=== PATIENT | male | born 1965 | race Hispanic/Latino ===

== ENCOUNTER 2019-11-25 11:52 | Emergency (ER) | payer BC, OTHER ==
[2019-11-25] MEDS ORDERED: SODIUM CHLORIDE 0.9% 1000ML 1,000 ML IV ONE (11:53)
[2019-11-25 12:19] LABS: APPEARANCE,URINE Turbid (CLEAR); BILIRUBIN,URINE Negative (NEGATIVE); COLOR,URINE Yellow (YELLOW); GLUCOSE, URINE (UA) Negative (NEGATIVE); KETONES,URINE Negative (NEGATIVE); LEUKOCYTE ESTERASE ,URINE Trace (NEGATIVE); NITRATE,URINE Negative (NEGATIVE); OCCULT BLOOD,URINE Negative (NEGATIVE); PH,URINE 8.5 (5.0-8.0); PROTEIN,URINE Negative (NEGATIVE); UROBILINOGEN,URINE 0.2 mg/dL (0.2-1.0)
[2019-11-25 12:27] LABS: BASOPHILS % (AUTO) 0.4 % (0.0-5.0); EOSINOPHILS % (AUTO) 2.7 % (0.0-8.0); HEMATOCRIT 45.3 % (42-54); LYMPHOCYTES % (AUTO) 19.7 % (21.0-51.0); MEAN CORPUSCULAR HEMOGLOBIN 32.3 pg (27.0-33.0); MEAN CORPUSCULAR HGB CONC 37.5 g/dL (32.0-36.0); MEAN CORPUSCULAR VOLUME 86.1 fL (79-99); MONOCYTES % (AUTO) 8.6 % (3.0-13.0); NEUTROPHILS % (AUTO) 68.1 % (40.0-77.0); PLATELET COUNT (AUTO) 214 K/uL (130-400); RED BLOOD CELL COUNT(AUTO) 5.26 MIL/uL (4.50-6.20); RED CELL DISTRIBUTION WIDTH 12.2 % (11.0-15.5); WHITE BLOOD COUNT (AUTO) 10.3 K/uL (4.8-10.8)
[2019-11-25 12:33] LABS: AMORPHOUS SEDIMENT,UR Many /LPF (None Seen); BACTERIA,URINE Rare /HPF (None Seen); RBC,URINE 0-1 /HPF (0-1); SQUAMOUS EPITHELIAL CELL,UR Rare /HPF (0-2); WBC,URINE 0-1 /HPF (0-1)
[2019-11-25 12:37] LABS: POTASSIUM 3.9 mmol/L (3.5-5.1)
[2019-11-25] MEDS ORDERED: TAMSULOSIN HCL 0.4 MG CAP.ER.24H ONE ×2 (13:45→13:46)
[2019-11-25] MEDS ORDERED: KETOROLAC TROMETHAMINE 30MG/ML ONE ×2 (13:45→13:46)
== END 2019-11-25 15:00 | disposition home or self-care (01) ==
LOC: EDH 11:52
DX: N20.0 Calculus of kidney (principal); I10 Essential (primary) hypertension; Z88.8 Allergy status to other drugs, medicaments and biological substances
CPT/HCPCS: 36415; 76770; 80048; 81001; 85025; 96361; 96374; 99284; J1885; J7030

== ENCOUNTER 2019-11-28 03:12 | Inpatient (IN) | payer SELFPAY ==
[~2019-11-28] VITALS: Ht 182.9 cm; Wt 135.6 kg
[2019-11-28] MEDS ORDERED: ONDANSETRON HCL 4 MG/2 ML VIAL ONE (03:30)
[2019-11-28] MEDS ORDERED: MORPHINE SULFATE 4 MG/1ML SYG ONE ×2 (03:30→06:06)
[2019-11-28 03:38] LABS: BASOPHILS % (AUTO) 0.8 % (0.0-5.0); EOSINOPHILS % (AUTO) 2.9 % (0.0-8.0); HEMATOCRIT 48.7 % (42-54); LYMPHOCYTES % (AUTO) 15.7 % (21.0-51.0); MEAN CORPUSCULAR HEMOGLOBIN 32.3 pg (27.0-33.0); MEAN CORPUSCULAR HGB CONC 37.2 g/dL (32.0-36.0); MONOCYTES % (AUTO) 5.8 % (3.0-13.0); NEUTROPHILS % (AUTO) 72.7 % (40.0-77.0); PLATELET COUNT (AUTO) 198 K/uL (130-400); RED CELL DISTRIBUTION WIDTH 12.3 % (11.0-15.5); WHITE BLOOD COUNT (AUTO) 12.1 K/uL (4.8-10.8)
[2019-11-28 03:49] LABS: CREATININE 1.1 mg/dL (0.5-1.5); POTASSIUM 3.7 mmol/L (3.5-5.1)
[2019-11-28 03:54] LABS: BILIRUBIN,TOTAL 1.1 mg/dL (0.2-1.0); TOTAL PROTEIN, SERUM 7.4 g/dL (6.0-8.3)
[2019-11-28] MEDS ORDERED: MORPHINE SULFATE 2 MG/ML 1ML SYG ONE (04:03)
[2019-11-28] MEDS ORDERED: ZOSYN 3.375GM+NS 50ML 50 ML IV ONE (05:09)
[2019-11-28] MEDS: SODIUM CHLORIDE 0.9% 1000ML 1,000 ML IV SCH ×2 (05:55→16:28)
[2019-11-28] MEDS ORDERED: METRONIDAZOLE 500MG/100ML BAG 100 ML ONE (06:00)
[2019-11-28] MEDS: CEFTRIAXONE SODIUM 1 GM IV SCH (06:00)
[2019-11-28] MEDS ORDERED: NITROGLYCERIN 0.4 MG SL TAB SL PRN (06:00)
[2019-11-28] MEDS: METRONIDAZOLE 500MG/100ML BAG 100 ML IV SCH ×3 (06:00→19:57)
[2019-11-28] MEDS ORDERED: CEFTRIAXONE SODIUM 1 GM ONE (06:06)
[2019-11-28 06:27] LABS: INR 1.04 (0.85-1.15); PROTHROMBIN TIME 11.2 SEC (9.6-11.6)
[2019-11-28] MEDS ORDERED: HYDRALAZINE HCL 20 MG/ML VIAL IV PRN (08:30)
[2019-11-28] MEDS ORDERED: FAMOTIDINE/PF 20 MG/2 ML VIAL IV ONE (08:32)
[2019-11-28] MEDS: FAMOTIDINE/PF 20 MG/2 ML VIAL IV SCH ×2 (09:00→19:57)
[2019-11-28] MEDS: ZOSYN 3.375GM+NS 50ML 50 ML IV SCH ×2 (13:00→19:57)
[2019-11-28] MEDS: MORPHINE SULFATE 4 MG/1ML SYG IV PRN (15:16)
[2019-11-28] MEDS ORDERED: TAMS-1 PO (15:37)
[2019-11-28] MEDS ORDERED: LISI2.5T91 PO (15:37)
[2019-11-28 16:19] VITALS: BP 128/94
--- NOTE | 2019-11-28 16:37 | NUR ---
DC PLAN VISITED WITH PATIENT. PATIENT WAS WITH NURSE DOING ADMISSION ASSESSMENT. CM WILL CONTINUE TO FOLLOW. Addendum: 11/28/19 at 1639 by JACOB WILSON RN CM Amended: Links added.
[2019-11-28] MEDS: MORPHINE SULFATE 2 MG/ML 1ML SYG IVP PRN (19:58)
[2019-11-28 20:11] VITALS: BP 150/98
[2019-11-29 00:21] VITALS: BP 129/87
[2019-11-29 00:25] LABS: APPEARANCE,URINE Cloudy (CLEAR); BILIRUBIN,URINE Negative (NEGATIVE); COLOR,URINE Dark Yellow (YELLOW); GLUCOSE, URINE (UA) Negative (NEGATIVE); KETONES,URINE 15 mg/dL (NEGATIVE); LEUKOCYTE ESTERASE ,URINE Negative (NEGATIVE); NITRATE,URINE Negative (NEGATIVE); OCCULT BLOOD,URINE Small (NEGATIVE); PROTEIN,URINE Trace mg/dL (NEGATIVE)
[2019-11-29 00:40] LABS: BACTERIA,URINE None Seen /HPF (None Seen); MUCUS,URINE Few LPF (None Seen); RBC,URINE 0-1 /HPF (0-1); SQUAMOUS EPITHELIAL CELL,UR Rare /HPF (0-2); WBC,URINE None Seen /HPF (0-1)
[2019-11-29] MEDS: SODIUM CHLORIDE 0.9% 1000ML 1,000 ML IV SCH ×3 (01:02→19:36)
[2019-11-29 03:40] LABS: BASOPHILS % (AUTO) 0.3 % (0.0-5.0); EOSINOPHILS % (AUTO) 2.1 % (0.0-8.0); LYMPHOCYTES % (AUTO) 7.5 % (21.0-51.0); MEAN CORPUSCULAR HEMOGLOBIN 32.2 pg (27.0-33.0); MEAN CORPUSCULAR HGB CONC 36.3 g/dL (32.0-36.0); MEAN CORPUSCULAR VOLUME 88.9 fL (79-99); MONOCYTES % (AUTO) 5.8 % (3.0-13.0); PLATELET COUNT (AUTO) 206 K/uL (130-400); RED CELL DISTRIBUTION WIDTH 12.8 % (11.0-15.5); WHITE BLOOD COUNT (AUTO) 15.9 K/uL (4.8-10.8)
[2019-11-29 03:48] LABS: CREATININE 1.2 mg/dL (0.5-1.5); POTASSIUM 4.1 mmol/L (3.5-5.1)
[2019-11-29] MEDS: CEFTRIAXONE SODIUM 1 GM IV SCH (04:56)
[2019-11-29] MEDS: METRONIDAZOLE 500MG/100ML BAG 100 ML IV SCH ×3 (04:56→20:03)
[2019-11-29] MEDS: ZOSYN 3.375GM+NS 50ML 50 ML IV SCH ×3 (05:36→20:03)
[2019-11-29 05:50] VITALS: BP 111/74
[2019-11-29] MEDS: ONDANSETRON HCL 4 MG/2 ML VIAL IV PRN ×2 (07:12→16:23)
[2019-11-29 08:00] VITALS: BP 129/98
[2019-11-29] MEDS: FAMOTIDINE/PF 20 MG/2 ML VIAL IV SCH ×2 (09:08→20:03)
[2019-11-29] MEDS: FLUCONAZOLE 200 MG/NS 100 ML 100 ML IV SCH (10:44)
[2019-11-29 12:00] VITALS: BP 141/101
--- NOTE | 2019-11-29 13:05 | NUR ---
DC PLAN VISITED WITH PATIENT. PATIENT LIVES WITH SPOUSE. INDEPENDENT ABLE TO PERFORM ADL'S. PATIENT HAS NO SERVICES OR DME'S. FEELS SAFE TO RETURN. Addendum: 11/29/19 at 1306 by JACOB WILSON RN CM Amended: Links added.
[2019-11-29 16:30] VITALS: BP 123/82
[2019-11-29 19:51] VITALS: BP 133/92
[2019-11-29] MEDS: MORPHINE SULFATE 2 MG/ML 1ML SYG IVP PRN (21:47)
[2019-11-30] VITALS (7 sets, daily range): BP systolic 121–148; BP diastolic 77–96
[2019-11-30] MEDS: ONDANSETRON HCL 4 MG/2 ML VIAL IV PRN (01:25)
[2019-11-30] MEDS: MORPHINE SULFATE 2 MG/ML 1ML SYG IVP PRN ×2 (03:33→05:54)
--- NOTE | 2019-11-30 03:45 | NUR ---
MD Called I, Luli Morfin called the hospitalist and surgery on behalf of the patient's increase of abdominal girth, pain, and distention. The hospitalist informed me to keep the patient NPO until surgery rounds to see him in the morning but encouraged me to call the surgery team. The medical professional that was informed of the situation for the surgery group was not concerned at all. She asked me if the patient was running a fever and the answer was no. She told me that the situation can be addressed in the morning. Thanks for calling. All measures have been addressed concerning the patient's safety. He is being closely monitored & vitals are stable.
[2019-11-30 05:38] LABS: BASOPHILS % (AUTO) 0.5 % (0.0-5.0); EOSINOPHILS % (AUTO) 2.8 % (0.0-8.0); HEMATOCRIT 43.6 % (42-54); LYMPHOCYTES % (AUTO) 12.9 % (21.0-51.0); MONOCYTES % (AUTO) 9.2 % (3.0-13.0); NEUTROPHILS % (AUTO) 65.2 % (40.0-77.0); PLATELET COUNT (AUTO) 175 K/uL (130-400); RED CELL DISTRIBUTION WIDTH 12.7 % (11.0-15.5)
[2019-11-30] MEDS ORDERED: PHARMACY COMMUNICATION MISC SCH ×2 (05:45→14:00)
[2019-11-30] MEDS: METRONIDAZOLE 500MG/100ML BAG 100 ML IV SCH ×3 (05:50→20:37)
[2019-11-30] MEDS: SODIUM CHLORIDE 0.9% 1000ML 1,000 ML IV SCH ×2 (05:50→17:35)
[2019-11-30 06:06] LABS: CREATININE 1.2 mg/dL (0.5-1.5); MAGNESIUM 1.9 mg/dL (1.80-2.40); POTASSIUM 3.4 mmol/L (3.5-5.1)
[2019-11-30] MEDS: ZOSYN 3.375GM+NS 50ML 50 ML IV SCH ×3 (07:35→20:37)
--- NOTE | 2019-11-30 07:58 | NUR ---
DR. Willa DANG IN ROOM SPEAKING WITH PT. RE:PLAN OF CARE. QUESTIONS ANSWERED BY DR. DANG, PT. VERBALIZED UNDERSTANDING.
[2019-11-30] MEDS ORDERED: LIDOCAINE HCL-MPF 1% 2ML VIAL IV PRN (08:45)
[2019-11-30] MEDS ORDERED: POTASSIUM CHLORIDE 10MEQ/100ML 100 ML IV PRN (08:45)
[2019-11-30] MEDS: FAMOTIDINE/PF 20 MG/2 ML VIAL IV SCH ×2 (08:54→20:37)
[2019-11-30] MEDS: FLUCONAZOLE 200 MG/NS 100 ML 100 ML IV SCH (09:48)
[2019-11-30] MEDS: MORPHINE SULFATE 4 MG/1ML SYG IV PRN (10:02)
--- NOTE | 2019-11-30 10:12 | NUR ---
CALLED DR. GONZALEZ'S OFFICE TO NOTIFY RE:PT.'S C/O UNRESOLVED ABDOMINAL PAIN AND DISTENTION; MESSAGE LEFT ALONG WITH CALLBACK NUMBER PER VOICEMAIL. AWAITING RESPONSE.
--- NOTE | 2019-11-30 14:47 | NUR ---
SITTING UP IN CHAIR AT BEDSIDE WATCHING TELEVISION. PT. STATES, "I WALKED THREE TIMES. AND I BURPED AND I FARTED AND I FEEL MUCH BETTER." CALL LIGHT WITHIN REACH, VERBALIZED ABILITY TO USE.
[2019-11-30] MEDS: TAMSULOSIN HCL 0.4 MG CAP.ER.24H PO SCH (20:37)
[2019-12-01 03:42] VITALS: BP 122/68
[2019-12-01] MEDS: SODIUM CHLORIDE 0.9% 1000ML 1,000 ML IV SCH ×3 (03:50→23:55)
[2019-12-01] MEDS: ZOSYN 3.375GM+NS 50ML 50 ML IV SCH ×3 (03:51→20:54)
[2019-12-01] MEDS: KETOROLAC TROMETHAMINE 30MG/ML IV PRN ×2 (03:51→21:01)
[2019-12-01] MEDS: METRONIDAZOLE 500MG/100ML BAG 100 ML IV SCH ×3 (06:08→20:54)
[2019-12-01 07:30] VITALS: BP 137/93
[2019-12-01] MEDS: FLUCONAZOLE 200 MG/NS 100 ML 100 ML IV SCH (10:10)
[2019-12-01] MEDS: ENOXAPARIN SODIUM 40 MG/0.4 ML SYRINGE SQ SCH (10:11)
[2019-12-01] MEDS: LISINOPRIL 5 MG TABLET PO SCH (10:12)
[2019-12-01] MEDS: FAMOTIDINE/PF 20 MG/2 ML VIAL IV SCH ×2 (10:15→20:54)
[2019-12-01 11:00] VITALS: BP 133/87
[2019-12-01 16:00] VITALS: BP 131/81
[2019-12-01 19:46] VITALS: BP 143/87
[2019-12-01] MEDS: TAMSULOSIN HCL 0.4 MG CAP.ER.24H PO SCH (20:54)
[2019-12-01 23:41] VITALS: BP 110/52
[2019-12-02 04:00] VITALS: BP 129/76
[2019-12-02] MEDS: ZOSYN 3.375GM+NS 50ML 50 ML IV SCH (04:21)
[2019-12-02] MEDS: METRONIDAZOLE 500MG/100ML BAG 100 ML IV SCH (05:16)
[2019-12-02 07:43] VITALS: BP 146/96
[2019-12-02] MEDS: FLUCONAZOLE 200 MG/NS 100 ML 100 ML IV SCH (09:08)
[2019-12-02] MEDS: FAMOTIDINE/PF 20 MG/2 ML VIAL IV SCH (09:08)
[2019-12-02] MEDS: ENOXAPARIN SODIUM 40 MG/0.4 ML SYRINGE SQ SCH (09:08)
[2019-12-02] MEDS: LISINOPRIL 5 MG TABLET PO SCH (09:08)
[2019-12-02 10:52] VITALS: BP 142/98
[2019-12-02] MEDS ORDERED: METR-172 PO (13:14)
[2019-12-02] MEDS ORDERED: FAMO20TA8 PO (13:23)
[2019-12-02] MEDS ORDERED: FLUC200T8 PO (13:30)
== END 2019-12-02 16:30 | disposition home or self-care (01) | DRG 391 ==
LOC: EDH 03:12 → EDHIP 03:13 → DAHIP 09:30 → 3AH 11-29 23:21
PROVIDERS: ADMIT Family Medicine; ATTEND Family Medicine
DX: K57.00 Diverticulitis of small intestine with perforation and abscess without bleeding (principal); K65.0 Generalized (acute) peritonitis; Z68.41 Body mass index [BMI] 40.0-44.9, adult; K76.0 Fatty (change of) liver, not elsewhere classified; I10 Essential (primary) hypertension; E11.9 Type 2 diabetes mellitus without complications; E66.01 Morbid (severe) obesity due to excess calories; N40.0 Benign prostatic hyperplasia without lower urinary tract symptoms; Z87.442 Personal history of urinary calculi
CPT/HCPCS: 36415; 74018; 74176; 80048; 80053; 81001; 82150; 82948; 83605; 83735; 84132; 84145; 85025; 85610; 85730; 87040; 93005; C1894; G0378; J0696; J1450; J1650; J1885; J2270; J2405; J2543; J3490; J7030